=== PATIENT | male | born 1985 | race Hispanic/Latino ===

== ENCOUNTER 2016-07-11 18:55 | Inpatient (IN) | payer MEDICAID ==
[2016-07-11 20:00] LABS: BASO % 0.4 % (0.0-2.0); EOS # 0.1 K/uL (0.0-0.7); EOS % 1.2 % (0.0-4.0); HEMATOCRIT 42.9 % (35.0-51.0); LYMPH # 1.5 K/uL (1.0-4.3); MEAN CELL VOLUME 84.5 fL (80.0-94.0); MEAN CORPUSCULAR HEMOGLOBIN 28.2 pg (27.0-31.0); MEAN CORPUSCULAR HGB CONC 33.3 g/dL (33.0-37.0); MEAN PLATELET VOLUME 7.8 fL (7.2-11.7); MONO # 0.6 K/uL (0.0-0.8); MONO % 5.3 % (0.0-10.0); RED CELL DISTRIBUTION WIDTH 15.5 % (11.5-14.5); WHITE BLOOD COUNT 10.9 K/uL (4.8-10.8)
[2016-07-11 20:14] LABS: CHLORIDE 100 mmol/L (98-107)
[2016-07-11 20:15] LABS: POTASSIUM 4.1 mmol/L (3.6-5.2); SODIUM 135 mmol/L (132-148)
[2016-07-11 20:18] LABS: ALB/GLOB RATIO 1.3 (1.0-2.1); ALKALINE PHOSPHATASE 67 U/L (38-126); ALT/SGPT 43 U/L (21-72); AST/SGOT 62 U/L (17-59); BLOOD UREA NITROGEN 10 mg/dL (9-20); CALCIUM 8.9 mg/dl (8.6-10.4); CARBON DIOXIDE 18 mmol/L (22-30); GFR AFRICAN-AMERICAN > 60; GLUCOSE,RANDOM 95 mg/dL (75-110); TOTAL PROTEIN 8.4 g/dL (6.3-8.3)
[2016-07-11 20:19] LABS: ALCOHOL SERUM 92 mg/dl (0-10)
--- NOTE | 2016-07-11 21:06 | C.PDOC ---
History Of Present Illness 31 year old male presents to the ED requesting detox for heroin, cocaine, and alcohol. Patient states drinking a pint of alcohol daily and using IV heroin and cocaine at the same time today and having last drink just prior to arrival. He also notes a left arm abscess that was surgically drained two weeks prior at another hospital and is complying with all antibiotic regimen following discharge. Patient is currently on one antibiotic and denies any other complaints at this time. Chief Complaint (Nursing): Substance Abuse History Per: Patient History/Exam Limitations: no limitations, intoxication Onset/Duration Of Symptoms: Hrs Current Symptoms Are (Timing): Still Present Past Medical History Reviewed: Historical Data, Nursing Documentation, Vital Signs Vital Signs: Last Vital Signs Temp 98 F 07/11/16 22:04 Pulse 106 H 07/11/16 22:04 Resp 18 07/11/16 22:04 BP 134/76 07/11/16 22:04 Pulse Ox 98 07/11/16 22:04 Family History: States: Unknown Family Hx - Social History Hx Alcohol Use: Yes Hx Substance Use: Yes - Immunization History Hx Tetanus Toxoid Vaccination: Yes Hx Influenza Vaccination: Yes Hx Pneumococcal Vaccination: Yes Review Of Systems Constitutional: Negative for: Fever, Chills Gastrointestinal: Negative for: Nausea, Vomiting Skin: Positive for: Other (abscess on left arm ) Physical Exam - Physical Exam Appears: Non-toxic, No Acute Distress Skin: Warm, Dry Neck: Normal ROM, Supple Cardiovascular: Rhythm Regular, No Murmur Respiratory: No Decreased Breath Sounds, No Accessory Muscle Use, No Rales, No Rhonchi, No Stridor, No Wheezing Gastrointestinal/Abdominal: Soft, No Tenderness, No Distention, No Guarding, No Rebound Extremity: Normal ROM, No Tenderness, Other (left upper arm has healing ulcer on medial aspect that is currently bandaged. No signs of erythema or drainage) Neurological/Psych: Oriented x3 ED Course And Treatment - Laboratory Results Result Diagrams: 07/11/16 19:56 07/11/16 20:04 O2 Sat by Pulse Oximetry: 96 Disposition - Disposition Disposition: HOSPITALIZED Disposition Time: 21:15 Condition: STABLE - Clinical Impression Clinical Impression: Drug dependence, Alcohol dependence - Scribe Statement The provider has reviewed the documentation as recorded by the Scribolman Schwartz All medical record entries made by the Scribe were at my direction and personally dictated by me. I have reviewed the chart and agree that the record accurately reflects my personal performance of the history, physical exam, medical decision making, and the department course for this patient. I have also personally directed, reviewed, and agree with the discharge instructions and disposition.
[2016-07-11] MEDS ORDERED: Aluminum Hydroxide/Magnesium Hydroxide Susp (30 mL) PO PRN (22:48)
[2016-07-11] MEDS ORDERED: Benzocaine/Menthol (Cepacol) Lozenge PO PRN (22:48)
[2016-07-12] MEDS: Multiple Vitamins Tab PO SCH ×2 (09:56→10:11)
--- NOTE | 2016-07-12 11:19 | PCM.PSYCH ---
Initial Psychiatric Evaluation - Initial Psychiatric Evaluation Type of Admission: Voluntary Legal Status: Capacity Chief Complaint (in patient's own words): I came in to get help History of Present Illness and Precipitating Events: This is a 31 years old CM, who is currently unemployed and lives with his fimichael e, came to the ED to get help in alcohol and heroin detox. Patient reports of a long history of drinking and abusing heroin and cocaine. As per the patient he started drinking and abusing drugs when he was young. Over the course of years his tolerance increased. Now patient reports of injecting up to 20 bags of heroin along with 2 g of cocaine, and drinking up to 2 pints of vodka on a daily basis. Patient states that yesterday he injected almost 10 bags of heroin alone with 1 g of cocaine and consumed up to 1 pint of vodka. He became increasingly irritable and agitated and started having withdrawal symptoms and so came to the hospital to get help. Patient reports of irritable mood, and reports withdrawal symptoms including sweating, headaches, anxiety, and nausea. Patient reports that due to his medication since his bipolar symptoms are under control. He denies any feelings of hopelessness and helplessness. He denies any suicidal ideation or homicidal ideation. Patient denies any auditory or visual hallucinations or any psychotic symptoms or any manic symptoms. He denies any other substance abuse. Past medical history Hep C Past psychiatric history Patient denies any history of inpatient psychiatric hospitalizations and denies any history of follow-up with any psychiatrist. However he reports history of being on psychotropic medications prescribed by the medical doctor. Patient denies any history of suicidal ideation or attempt or any history of homicidal ideation or attempt in the past. Patient denies any history of auditory or visual hallucinations or any psychotic symptoms in the past Patient reports history of multiple detoxes in the past. His longest period of sobriety was for almost 5 months in 2012. Current Medications: Active Medications Generic Name Dose Route Start Last Admin Trade Name Freq PRN Reason Stop Dose Admin Al Hydrox/Mg Hydrox/Simethicone 30 ml 07/11/16 22:48 Maalox 30 Ml PO TID PRN Indigestion / Heartburn Benzocaine/Menthol 1 teto 07/11/16 22:48 Cepacol Sore Throat PO QID PRN Sore Throat Chlordiazepoxide 50 mg 07/11/16 22:49 Librium PO Q4 PRN Symptoms of alcohol withdrawl Clonidine HCl 0.1 mg 07/11/16 22:48 Catapres PO Q8 PRN COWS Score More or Equal to 5 Folic Acid 1 mg 07/12/16 10:00 07/12/16 10:10 Folic Acid PO Not Given DAILY DELMAR Loperamide HCl 2 mg 07/11/16 22:48 Imodium PO Q8 PRN Diarrhea Multivitamins 1 tab 07/12/16 10:00 07/12/16 10:11 Hexavitamin PO Not Given DAILY DELMAR Ondansetron HCl 4 mg 07/11/16 22:48 Zofran Tab PO Q8 PRN Nausea/Vomiting Thiamine HCl 100 mg 07/12/16 10:00 07/12/16 10:11 Vitamin B1 Tab PO Not Given DAILY DELMAR Trazodone HCl 50 mg 07/11/16 22:49 Desyrel PO HS PRN Insomnia Past Psychiatric History - Past Psychiatric History Previous Treatment History: None Pertinent Medical Hx (Current Medical&Sleep Prob, Allergies): Allergies Allergy/AdvReac Type Severity Reaction Status Date / Time No Known Allergies Allergy Verified 07/11/16 19:10 Gabapentin [Neurontin] 600 mg PO TID 07/11/16 [place] Carbonate 300 mg PO DAILY 07/11/16 [place] Carbonate 600 mg PO HS 07/11/16 Mirtazapine [Remeron Soltab] 45 mg PO HS 07/11/16 Review of Systems - Review of Systems All systems: reviewed and no additional remarkable complaints except - Psychiatric Psychiatric: Anxiety, Irritability Mental Status Examination - Personal Presentation Personal Presentation: Looks older than stated age - Affect Affect: Constricted - Motor Activity Motor Activity: Calm - Reliability in Providing Information Reliability in Providing Information: Good - Speech Speech: Organized - Mood Mood: Anxious - Formal Thought Process Formal Thought Process: No Impairment - Obsessions/Compulsions Obsessions: No Compulsions: No - Cognitive Functions Orientation: Person, Place, Situation, Time Sensorium: Alert Attention/Concentration: Attentive Abstract Thinking: [place] Estimate of Intelligence: Below average Judgement: Imparied, as evidence by: Poor judgement, Intact, as evidence by: Insight regarding need for hospitalization - Risk Risk: Withdrawal, Diminished functioning - Strength & Assets Inventory Strength & Assets Inventory: Family support, Cooperative DSM 5 DX - DSM 5 DSM 5 Diagnosis: Cocaine use disorder moderate Opioid use disorder severe Opioid withdrawal Alcohol use disorder severe Alcohol withdrawal uncomplicated Bipolar disorder mixed moderate - Recommended/Plan of Treatment Treatment Recommendations and Plan of Treatment: Cocaine use disorder moderate Monitor signs and symptoms Use [place] for abstinence Opioid use disorder severe CBT Psychoeducation Supportive therapy, individual therapy Use LA for abstinence Opioid withdrawal CBT Psychoeducation Supportive therapy, individual therapy Clonidine when necessary Start Subutex when scoring Alcohol use disorder severe CBT Psychoeducation Supportive therapy, individual therapy Use LA for abstinence Alcohol withdrawal uncomplicated CBT Psychoeducation Supportive therapy, individual therapy Librium when necessary Start Librium taper when scoring Folic acid/thiamine/multivitamin Bipolar disorder mixed moderate CBT Psychoeducation Supportive therapy, individual therapy lithium 300 mg daily lithium 600 mg daily at bedtime Neurontin 600 mg by mouth 3 times a day Remeron 45 mg by mouth daily at bedtime Trazodone 50 mg PO Q HS - Smoking Cessation Smoking Cessation Initiated: No
[2016-07-12] MEDS: Amoxicillin-Clav 875-125 mg Tab PO SCH (18:25)
[2016-07-12] MEDS: Bacitracin 500 Units/gm Oint Foilpak UD TOP SCH (18:42)
[2016-07-13] MEDS: Bacitracin 500 Units/gm Oint Foilpak UD TOP SCH ×2 (09:52→18:36)
[2016-07-13] MEDS: Amoxicillin-Clav 875-125 mg Tab PO SCH ×3 (09:52→18:36)
[2016-07-13] MEDS: Multiple Vitamins Tab PO SCH (09:58)
--- NOTE | 2016-07-13 14:59 | PCM.PYCHPN ---
Psychiatric Progress Note - Psychiatric Progress Note Patient seen today, length of contact: 20 min Patient Chief Complaint: "I'm probably leaving today" Problems Identified/Issues Discussed: The pt is seen, chart reviewed, case discussed with staff. Pt mood today is irritable. He states that he will probably leave today. He is guarded and his tone is aggressive. He refuses IOP, but plans on attending AA meetings. Pt states he slept well the night before. Aftercare discussed, support and psychoeducation given. Medical Problems: Hepatitis C Medication Change: Yes (Methadone taper given this morning ) Medical Record Reviewed: Yes Mental Status Examination - Cognitive Function Orientation: Person, Place, Situation, Time Memory: Intact Attention: WNL Concentration: WNL Association: WN Fund of Knowledge: WN - Mood Mood: Anxious, Other (Irritable, aggressive) - Affect Affect: Constricted - Speech Speech: Appropriate - Formal Thought Process Formal Thought Process: No Impairment - Suicidal Ideation Suicidal Ideation: No - Homicidal Ideation Homicidal Ideation: No Goal/Treatment Plan - Goal/Treatment Plan Need for Continued Stay: Discharge may exacerbated symptoms Progress Toward Problem(s) and Goals/Treatment Plan: Cocaine use disorder moderate Monitor signs and symptoms Use AL for abstinence Opioid use disorder severe CBT Psychoeducation Supportive therapy, individual therapy Use AL for abstinence Opioid withdrawal CBT Psychoeducation Supportive therapy, individual therapy Clonidine when necessary Alcohol use disorder severe CBT Psychoeducation Supportive therapy, individual therapy Use AL for abstinence Alcohol withdrawal uncomplicated CBT Psychoeducation Supportive therapy, individual therapy Librium when necessary Folic acid/thiamine/multivitamin Bipolar disorder mixed moderate CBT Psychoeducation Supportive therapy, individual therapy [place] 300 mg PO daily, 600 mg PO HS DELMAR Neurontin 600 mg PO TID DELMAR Remeron 45 mg PO HS DELMAR Trazodone 50 mg PO HS PRN for insomnia - Smoking Cessation Smoking Cessation Initiated: No
--- NOTE | 2016-07-14 08:58 | PCM.PYCHDC ---
Mental Status Examination - Mental Status Examination Orientation: Person, Place, Situation, Time Memory: Intact Mood: Anxious Affect: Broad Speech: Appropriate Attention: WNL Concentration: WNL Association: WNL Fund of Knowledge: WNL Formal Thought Process: No Impairment Suicidal Ideation: No Current Homicidal Ideation?: No Discharge Summary - Discharge Note Reason for Hospitalization: Cocaine use disorder moderate Opioid use disorder severe Opioid withdrawal Alcohol use disorder severe Alcohol withdrawal uncomplicated Bipolar disorder mixed moderate Consultations:: List each consultation separately and include: 1. Reason for request. 2. Findings. 3. Follow-up Summary of Hospital Course include:: 1. Description of specific treatment plan utilized for patients during their course of treatmen. 2. Summarize the time- course for resolution of acute symptoms and/or regressed behaviors. 3. Describe issues identified and worked on during hospitalization. 4. Describe medication utilized. 5. Describe medical problems identified and treated. 6. Reassessment of suicide risk Summary of Hospital Course: This is a 31 years old CM, who is currently unemployed and lives with his fimichael e, came to the ED to get help in alcohol and heroin detox. Patient reports of a long history of drinking and abusing heroin and cocaine. As per the patient he started drinking and abusing drugs when he was young. Over the course of years his tolerance increased. Now patient reports of injecting up to 20 bags of heroin along with 2 g of cocaine, and drinking up to 2 pints of vodka on a daily basis. Patient states that yesterday he injected almost 10 bags of heroin alone with 1 g of cocaine and consumed up to 1 pint of vodka. He became increasingly irritable and agitated and started having withdrawal symptoms and so came to the hospital to get help. Patient reports of irritable mood, and reports withdrawal symptoms including sweating, headaches, anxiety, and nausea. Patient reports that due to his medication since his bipolar symptoms are under control. He denies any feelings of hopelessness and helplessness. He denies any suicidal ideation or homicidal ideation. Patient denies any auditory or visual hallucinations or any psychotic symptoms or any manic symptoms. He denies any other substance abuse. Hospital course: Pt is seen, chart reviewed, case discussed. Pt states that his mood is "okay" today compared to yesterday. Pt slept well the night before. Patient wants to leave today instead of his scheduled discharge date. Pt's current plan is to attend AA meetings. Attended groups and activities [place]/CBT used Support and psychoeducation given Medication was adjusted since pt is leaving before medication ends. Pt responded well to treatment. He left a day early and was dismissive of therapy, was irate but he still managed to stay a day per proposal writer's request. He is given 5 mg, not 10 mg today as he was leaving. Risks discussed. Including OD and . - Final Diagnosis (DSM 5) Condition upon Discharge: STABLE DSM 5: Cocaine use disorder moderate Opioid use disorder severe Alcohol use disorder severe Bipolar disorder mixed moderate Disposition: HOME/ ROUTINE Follow-up Treatment Plan: Attend after care: AA or NA meetings Use relapse prevention skills Continue below meds Return to ER if experience suicidal ideation, homicidal ideation, agitation Prescriptions/Medication Reconciliation: [place] Carbonate [[place] 300MG] 300 mg PO DAILY #30 cap [place] [[place] 300MG] 600 mg PO HS #30 cap Gabapentin [Neurontin] 600 mg PO TID #90 tab Mirtazapine [Remeron] 45 mg PO HS #30 tab - Smoking Cessation Smoking Cessation Medication prescribed: No - Antipsychotic Medications Pt discharged on 2 or more routine antipsychotic medications: No
[2016-07-14 09:08] VITALS: TEMP 98.7
[2016-07-14] MEDS: Amoxicillin-Clav 875-125 mg Tab PO SCH (09:19)
[2016-07-14] MEDS: Bacitracin 500 Units/gm Oint Foilpak UD TOP SCH (09:19)
[2016-07-14] MEDS: Multiple Vitamins Tab PO SCH (09:19)
[2016-07-14 14:30] VITALS: BP 126/82; PULSE 82; RESP 18; O2SAT 99
== END 2016-07-14 02:30 | disposition home or self-care (01) | DRG 744 ==
LOC: C.ER 18:55 → C.7D 21:18
PROVIDERS: ADMIT Psychiatry & Neurology Psychiatry; ATTEND Psychiatry & Neurology Psychiatry
PROC: HZ2ZZZZ Detoxification Services for Substance Abuse Treatment (ICD-10-PCS; principal; 2016-07-11)
PROC: HZ32ZZZ Individual Counseling for Substance Abuse Treatment, Cognitive-Behavioral (ICD-10-PCS; 2016-07-11)
PROC: HZ36ZZZ Individual Counseling for Substance Abuse Treatment, Psychoeducation (ICD-10-PCS; 2016-07-11)
PROC: HZ59ZZZ Individual Psychotherapy for Substance Abuse Treatment, Supportive (ICD-10-PCS; 2016-07-11)
DX: F10.230 Alcohol dependence with withdrawal, uncomplicated (principal); B19.20 Unspecified viral hepatitis C without hepatic coma; F31.62 Bipolar disorder, current episode mixed, moderate; F14.90 Cocaine use, unspecified, uncomplicated; F11.23 Opioid dependence with withdrawal; Y90.4 Blood alcohol level of 80-99 mg/100 ml; G47.00 Insomnia, unspecified; F41.9 Anxiety disorder, unspecified